=== PATIENT | female | born 1965 | race Caucasian/White ===

== ENCOUNTER 2019-05-17 06:42 | Emergency (ER) | payer SELFPAY ==
[2019-05-17 09:26] LABS: HEMATOCRIT 40.9 % (36.0-47.0); MEAN CORPUSCULAR HEMOGLOBIN 31.4 pg (27.0-33.4); MEAN CORPUSCULAR HGB CONC 34.1 g/dL (32.0-36.0); MEAN CORPUSCULAR VOLUME 92 fl (80-97); PLATELET COUNT 173 10^3/uL (150-450); RED BLOOD COUNT 4.44 10^6/uL (3.72-5.28); RED CELL DISTRIBUTION WIDTH 13.2 % (11.5-14.0); WHITE BLOOD COUNT 10.4 10^3/uL (4.0-10.5)
[2019-05-17 09:27] LABS: AMORPHOUS SEDIMENT,URINE TRACE /HPF; APPEARANCE,URINE CLOUDY; BILIRUBIN,URINE NEGATIVE (NEGATIVE); COLOR,URINE YELLOW; GLUCOSE, URINE NEGATIVE (NEGATIVE); KETONES,URINE TRACE mg/dL (NEGATIVE); LEUKOCYTE ESTERASE,URINE LARGE (NEGATIVE); NITRITE,URINE POSITIVE (NEGATIVE); PROTEIN,URINE 30 mg/dL (NEGATIVE); URINE SPECIFIC GRAVITY 1.014; UROBILINOGEN,URINE NEGATIVE mg/dL (<2.0)
[2019-05-17 09:43] LABS: ALBUMIN 4.2 g/dL (3.5-5.0); ALKALINE PHOSPHATASE 62 U/L (38-126); ANION GAP 10 (5-19); ASPARTATE AMINO TRANSFERASE 20 U/L (14-36); BILIRUBIN,DIRECT 0.1 mg/dL (0.0-0.4); BILIRUBIN,TOTAL 0.6 mg/dL (0.2-1.3); BLOOD UREA NITROGEN 14 mg/dL (7-20); CALCIUM 9.6 mg/dL (8.4-10.2); CARBON DIOXIDE 25 mmol/L (22-30); CHLORIDE 104 mmol/L (98-107); GLUCOSE 100 mg/dL (75-110); POTASSIUM 3.9 mmol/L (3.6-5.0); TOTAL PROTEIN 7.3 g/dL (6.3-8.2)
[2019-05-17 09:54] LABS: ABSOLUTE LYMPHOCYTES# (MANUAL) 0.3 10^3/uL (0.5-4.7); BASOPHILS % (MANUAL) 1 % (0-2); EOSINOPHILS % (MANUAL) 0 % (0-6); LYMPHOCYTES % (MANUAL) 3 % (13-45); MONOCYTES % (MANUAL) 10 % (3-13); SEGMENTED NEUTROPHILS % (MAN) 86 % (42-78); TOTAL CELLS COUNTED 100
[2019-05-17 09:56] LABS: PLATELET COMMENT ADEQUATE; RBC MORPHOLOGY COMMENT NORMO-CYTIC/CHROMIC
[2019-05-17] MEDS ORDERED: CEFTRIAXONE 1 GM/D5W RTU 1 GM/50 ML RTUPB IV ONE (10:19)
[2019-05-17] MEDS ORDERED: NORMAL SALINE 1000 ML 1,000 ML IV ONE (10:19)
[2019-05-17] MEDS ORDERED: KETOROLAC TROMETHAMINE INJ/PF 30 MG/1 ML SDV IV ONE (10:19)
--- NOTE | 2019-05-17 10:53 | ER Document Report ---
Entered by MEJIA TREVIZO SCRIBE 05/17/19 1013 Acting as scribe for:MADIE GLOEVR MD ED General - General Chief Complaint: Flank Pain Stated Complaint: LOWER LEFT BACK PAIN Time Seen by Provider: 05/17/19 10:07 Mode of Arrival: Ambulatory Information source: Patient, [facility] Records Notes: This 53 year old female patient presents to the ED today with complaints of b ilateral flank pain that began x4 days ago. Patient states that she woke up with right-sided flank pain initially and that later that night, she had hematuria. Patient went to an urgent care for these symptoms and was started on an antibiotic for a UTI. Patient reports that she is unable to swallow pills so she requested that her antibiotics be liquid. Patient reports that the pharmacy initially had to "special order" this medication but was told yesterday that the pharmacy now can no longer even get the prescription. Essentially the patient has not had an abx treatment yet for this UTI that was diagnosed x4 days ago. Patient states that the flank pain shifted to her left side x2 days ago. Patient reports chills, nausea, and fevers since x1 day ago but denies vomiting. Patient states that she took motrin without relief. TRAVEL OUTSIDE OF THE [place] IN LAST 30 DAYS: No - Related Data Allergies/Adverse Reactions: No Known Allergies Allergy (Verified 07/17/12 20:07) Home Medications: motrin liquid prn Past Medical History - General Information source: Patient, [facility] Records - Social History Smoking Status: Current Every Day Smoker Cigarette use (# per day): Yes - 0.5 ppd Frequency of alcohol use: Rare Family History: Reviewed & Not Pertinent Patient has suicidal ideation: No Patient has homicidal ideation: No Musculoskeletal Medical History: Reports Hx Arthritis, Reports Hx Musculoskeletal Deformity Past Surgical History: Reports: Hx Section, Hx Hysterectomy, Hx Tonsillectomy - Immunizations Immunizations up to date: No Hx Diphtheria, Pertussis, Tetanus Vaccination: No Review of Systems - Review of Systems Constitutional: See HPI, Chills, Fever EENT: No symptoms reported Cardiovascular: No symptoms reported Respiratory: No symptoms reported Gastrointestinal: No symptoms reported, Nausea. denies: Vomiting Genitourinary: See HPI, Flank pain, Hematuria Female Genitourinary: No symptoms reported Musculoskeletal: No symptoms reported Skin: No symptoms reported Hematologic/Lymphatic: No symptoms reported Neurological/Psychological: No symptoms reported -: Yes All other systems reviewed and negative Physical Exam - Vital signs Vitals: Temp Pulse Resp BP Pulse Ox 98.9 F 94 16 164/89 H 98 05/17/19 06:55 05/17/19 06:55 05/17/19 06:55 05/17/19 06:55 05/17/19 06:55 Interpretation: Hypertensive - General General appearance: Alert In distress: None - HEENT Head: Normocephalic, Atraumatic Eyes: Normal Pupils: PERRL - Respiratory Respiratory status: No respiratory distress Chest status: Nontender Breath sounds: Normal Chest palpation: Normal - Cardiovascular Rhythm: Regular Heart sounds: Normal auscultation Murmur: No - Abdominal Inspection: Normal Distension: No distension Bowel sounds: Normal Tenderness: Other - Patient reports LUQ and RUQ pain with palpation Organomegaly: No organomegaly - Back Back: Tender - lower lumbar back musculature tenderness with palpation, CVA tenderness - CVA percussion tenderness with palpation to right and left flank, patient reports more pain with right flank - Extremities General upper extremity: Normal inspection General lower extremity: Normal inspection - Neurological Neuro grossly intact: Yes - Psychological Associated symptoms: Normal affect, Normal mood - Skin Skin Temperature: Warm Skin Moisture: Dry Skin Color: Normal Course - Vital Signs Vital signs: Temp Pulse Resp BP Pulse Ox 99.1 F 94 16 152/99 H 98 05/17/19 08:32 05/17/19 06:55 05/17/19 08:32 05/17/19 08:32 05/17/19 08:32 - Laboratory Result Diagrams: 05/17/19 09:00 05/17/19 09:00 Laboratory results interpreted by me: 05/17/19 05/17/19 09:00 09:00 Seg Neuts % (Manual) 86 H Lymphocytes % (Manual) 3 L Abs Neuts (Manual) 8.9 H Abs Lymphs (Manual) 0.3 L Urine Protein 30 H Urine Ketones TRACE H Urine Blood MODERATE H Urine Nitrite POSITIVE H Ur Leukocyte Esterase LARGE H Discharge - Discharge Clinical Impression: Pyelonephritis, Elevated blood pressure reading Constipation Qualifiers: Constipation type: unspecified constipation type Qualified Code(s): K59.00 - Constipation, unspecified Condition: Stable Disposition: HOME, SELF-CARE Additional Instructions: Pyelonephritis: Your evaluation shows evidence of pyelonephritis. This is an infection in the kidney. Typical symptoms are fever, pain in the flank, pain on urination, and frequent urination. Many cases of pyelonephritis can be treated at home. Hospital care may be necessary for patients who are very ill, or elderly or . Pyelonephritis is treated with antibiotics. Be sure to take all the medication as prescribed. Drink plenty of liquids (about three quarts per day). You may take acetaminophen for fever. You should feel significantly improved within two days. You should have a recheck of your urine in about one week to insure that the infection is gone. Return for a re-examination if your symptoms worsen in any way -- such as high fever, shaking chills, severe weakness or dizziness, severe pain, or inability to pass your urine. Take medication as prescribed. Take ibuprofen 600 mg every 8 hours for additional pain relief. Drink plenty of fluids throughout the day in the evening every day for the next several days. The pain medication does cause constipation. Your CT scan showed considerable amount of stool in the colon so it is important to start taking something now to get your bowels moving so you do not become severely constipated. Drink 4 ounces of the magnesium citrate when you get home. Drink another 4 ounces later in the evening. If you do not start having bowel movements by tomorrow, continue drinking 4 to 8 ounce doses twice daily until your bowels start moving. Return to the emergency room if you begin running high fevers, shaking chills, uncontrolled pain or vomiting. The urine was cultured, so if the culture grows an organism not covered by the antibiotic you are on, you will be contacted to change the antibiotic. Follow-up with your primary care provider Monday or Monday to recheck your urine to ensure that the infection is clearing up. Your blood pressure reading was elevated today. It was also noted to be elevated when you were seen here in 2012. You should check your blood pressure regularly to ensure that it is not elevated when you are not feeling stressed. If your blood pressure readings are consistently elevated, you should see a primary care provider to discuss management of blood pressure. RETURN TO THE EMERGENCY ROOM IF ANY NEW OR WORSENING SYMPTOMS. Prescriptions: Ciprofloxacin HCl [Cipro 500 mg Tablet] 500 mg PO BID #14 tablet Oxycodone HCl/Acetaminophen [Percocet 5-325 mg Tablet] 1 tab PO ASDIR PRN #10 tablet PRN Reason: Scribe Attestation: 05/17/19 10:54 I personally performed the services described in the documentation, reviewed and edited the documentation which was dictated to the scribe in my presence, and it accurately records my words and actions. I personally performed the services described in the documentation, reviewed and edited the documentation which was dictated to the scribe in my presence, and it accurately records my words and actions.
[2019-05-17] MEDS ORDERED: ONDANSETRON HCL INJ/PF 4 MG/2 ML SDV IV ONE (11:24)
[2019-05-17] MEDS ORDERED: MORPHINE SULFATE 10 MG/ML INJ IV ONE (11:24)
--- NOTE | 2019-05-17 12:02 | RADIOLOGY REPORT (SQ) ---
EXAM DESCRIPTION: CT ABD/PELVIS NO ORAL OR IV COMPLETED DATE/TIME: 05/17/2019 11:52 am REASON FOR STUDY: Flank pain, UTI COMPARISON: None. TECHNIQUE: CT scan of the abdomen and pelvis performed without intravenous or oral contrast. Images reviewed with lung, soft tissue, and bone windows. Reconstructed coronal and sagittal MPR images revi ewed. All images stored on PACS. All CT scanners at this facility use dose modulation, iterative reconstruction, and/or weight based d osing when appropriate to reduce radiation dose to as low as reasonably achievable (ALARA). [facility]: Dose Right [facility]: CareDose [facility]: Dose Right [facility]: Teradose 4D [facility]: [employer] RADIATION DOSE: CT Rad equipment meets quality standard of care and radiation dose reduction techniq ues were employed. CTDIvol: 5.0 mGy. DLP: 239 mGy-cm.mGy. LIMITATIONS: None. FINDINGS: LOWER CHEST: No significant findings. No nodules or infiltrates. NON-CONTRASTED LIVER, SPLEEN, ADRENALS: Cyst in the liver dome measures just over 1 cm. Spleen unrem arkable. No gross adrenal mass. PANCREAS: No masses. No peripancreatic inflammatory changes. GALLBLADDER: No identified stones by CT criteria. No inflammatory changes to suggest cholecystitis. RIGHT KIDNEY AND URETER: No solid masses. No significant calcification. No hydronephrosis or hydroure ter. LEFT KIDNEY AND URETER: No solid masses. No significant calcification. No hydronephrosis or hydrouret er. AORTA AND RETROPERITONEUM: No aneurysm. No retroperitoneal masses or adenopathy. BOWEL AND PERITONEAL CAVITY: Moderate stool. No small bowel obstruction detected. No ascites or abn ormal gas. APPENDIX: Normal. PELVIS, BLADDER, AND ABDOMINAL WALL:Numerous calcified phleboliths. No bladder stones or suspected d istal ureteral stones. No pelvic free fluid or mass. Abdominal intact. BONES: No significant findings. OTHER: No other significant finding. IMPRESSION: 1. No acute abdominopelvic abnormality. Specifically, no evidence of urinary obstruction or stones. TECHNICAL DOCUMENTATION: JOB ID: [id number] Quality ID # [id number]: Final reports with documentation of one or more dose reduction techniques (e.g., Au tomated exposure control, adjustment of the mA and/or kV according to patient size, use of iterative reconstruction technique) 2010 [employer]- All Rights Reserved Reading location - IP/workstation name: [email or web address]
[2019-05-17] MEDS ORDERED: MAGNESIUM CITRATE 296 ML BOTTLE PO ONE (13:40)
[2019-05-17 14:27] VITALS: BP 147/91
== END 2019-05-17 13:55 | disposition home or self-care (01) ==
LOC: ER 06:42
DX: N12 Tubulo-interstitial nephritis, not specified as acute or chronic (principal); K59.00 Constipation, unspecified; R03.0 Elevated blood-pressure reading, without diagnosis of hypertension; R10.9 Unspecified abdominal pain; R11.0 Nausea; M54.5 Low back pain; F17.210 Nicotine dependence, cigarettes, uncomplicated; Z90.710 Acquired absence of both cervix and uterus
CPT/HCPCS: 99284; 96361; 96375; 96365; 36415; 87086; 83690; 84703; 85025; 87088; 80053; 81001; 87186; 74176; J3490; J1885; J2270; J2405; J7030; J0696